=== PATIENT | female | born 1955 | race Caucasian/White ===

== ENCOUNTER 2024-04-26 14:52 | Outpatient (REF) | payer OTHER, SELFPAY ==
[2024-04-26 16:33] LABS: Blood Urea Nitrogen 17 mg/dL (9-16); Estimated Glomerular Filt Rate > 60
== END 2024-04-26 14:53 | disposition home or self-care (01) ==
LOC: HO.LAB 14:52
PROVIDERS: PCP Internal Medicine; Visit Provider Psychiatry & Neurology Neurology
DX: G43.009 Migraine without aura, not intractable, without status migrainosus (principal); G43.109 Migraine with aura, not intractable, without status migrainosus
CPT/HCPCS: 36415; 82565; 84520

== ENCOUNTER 2024-06-19 14:25 | Outpatient (REF) | payer OTHER, SELFPAY ==
--- NOTE | ~2024-06-19 | CT_ITS ---
EXAMINATION: CT ANGIOGRAM BRAIN, HEAD CLINICAL INFORMATION: Migraine COMPARISON: None available. TECHNIQUE: Test bolus sequences followed by intravenous administration of 75 mL of Omnipaque 350 intravenous contrast. Helical imaging was performed in the axial plane from the skull base to the vertex. Delayed postcontrast imaging of the head was also performed. The data was processed at the medical technologist generalist workstation for generation of MIP sequences. Three-dimensional volume rendered reformatted images were also generated at an offline 3-D workstation. The degree of stenosis determined by NASCET criteria. This CT examination was performed using dose optimization techniques as appropriate, variously including the following: *Automated exposure control *Adjustment of mA and/or kV according to patient size (this includes techniques or standardized protocols for targeted exams where dose is matched to indication/reason for exam; i.e. extremities or head) *Use of iterative reconstruction technique DLP: 1935 mGy-cm FINDINGS: BRAIN: No acute intracranial hemorrhage or infarct. The carver-white matter differentiation are preserved. No abnormal intracranial enhancement. No midline shift or hydrocephalus. No acute process or fluid collections. The osseous structures are unremarkable. Hyperostosis frontalis interna. No orbital pathology. The paranasal sinuses and mastoid air cells are clear. Atherosclerotic calcifications of the bilateral carotid siphons. Anterior circulation: The petrous, cavernous, supraclinoid segments of the internal carotid arteries are patent bilaterally. Hypoplastic right A1 with the distal YOAV branches originating from the left. The remaining major branches of the anterior and middle cerebral arteries as well as the anterior communicating artery complex are patent. No large vessel occlusion, saccular aneurysm, or dissection. Posterior circulation: The intracranial vertebral arteries are patent bilaterally. The basilar artery is normal in course and caliber. The posterior cerebral and superior cerebellar arteries arise normally from the basilar summit. No aneurysm. On delayed imaging, the venous structures demonstrate normal contrast opacification. No filling defect. CT/CT angio head IMPRESSION: 1. No acute intracranial hemorrhage or edematous infarct. 2. No large vessel occlusion, saccular aneurysm, or dissection. Electronically signed by: Ernestine Morales MD 07/18/2024 01:44 PM EDT
[2024-06-19] MEDS: iohexoL 350 MG/ML 75 ML INFUS..BTL IV (15:18)
[2024-06-20 11:01] LABS: Creatinine POC 0.7 mg/dL (0.5-1.4); GFR POC > 60
== END 2024-06-19 14:26 | disposition home or self-care (01) ==
LOC: HO.CT 14:25
PROVIDERS: PCP Internal Medicine; Visit Provider Psychiatry & Neurology Neurology
DX: G43.009 Migraine without aura, not intractable, without status migrainosus (principal)
CPT/HCPCS: 70496; 82565; Q9967